=== PATIENT | male | born 1935 | race Caucasian/White ===

== ENCOUNTER 2018-08-13 11:39 | Emergency (ER) | payer BC, MEDICARE ==
[~2018-08-13] VITALS: Ht 177.8 cm; Wt 81.6 kg
[2018-08-13] MEDS ORDERED: NABU500T3 PO (11:52)
--- NOTE | 2018-08-13 11:58 | NUR ---
PT IS IN ROOM #2A. DR FLOYD EVALUATED THE PT.
--- NOTE | 2018-08-13 12:41 | NUR ---
PT WAS D/C'd TO HOME. D/C INSTRUCTIONS GIVEN TO THE PT.
[2018-08-13 12:43] VITALS: BP 143/83
== END 2018-08-13 12:44 | disposition home or self-care (01) ==
LOC: ER 11:39
DX: S40.021A Contusion of right upper arm, initial encounter (principal); Z88.0 Allergy status to penicillin; Z79.899 Other long term (current) drug therapy; X50.0XXA Overexertion from strenuous movement or load, initial encounter; Y93.89 Activity, other specified; Y92.89 Other specified places as the place of occurrence of the external cause; Y99.8 Other external cause status
CPT/HCPCS: 73060; A4663